=== PATIENT | male | born 1980 | race Caucasian/White ===

== ENCOUNTER 2024-10-30 10:20 | Emergency (ER) | payer BC | END 2024-10-30 12:37 | disposition home or self-care (01) | LOC: MW.ED 10:20 | DX: S62.336A Displaced fracture of neck of fifth metacarpal bone, right hand, initial encounter for closed fracture (principal); Z79.899 Other long term (current) drug therapy; X58.XXXA Exposure to other specified factors, initial encounter | CPT/HCPCS: 29125; 73130-26-RT; 73130-RT; 99282; 99283-25 ==